=== PATIENT | female | born 1990 | race Caucasian/White ===

== ENCOUNTER 2020-12-26 02:59 | Emergency (ER) | payer SELFPAY ==
[~2020-12-26] VITALS: Ht 165.1 cm; Wt 86.2 kg
[2020-12-26 04:12] VITALS: BP 123/71
[2020-12-26] MEDS ORDERED: ONDANSETRON 4 MG TAB.RAPDIS SL ONE (05:00)
[2020-12-26] MEDS ORDERED: PHENAZOPYRIDINE HCL 200 MG TABLET PO ONE (05:00)
[2020-12-26] MEDS ORDERED: HYDROCODONE/APAP 10/325MG TABLET PO ONE (05:00)
[2020-12-26 05:01] LABS: BILIRUBIN,URINE MODERATE (NEGATIVE); COLOR,URINE ORANGE (YELLOW); LEUKOCYTE ESTERASE ,URINE MODERATE (NEGATIVE); NITRITE, URINE POSITIVE (NEGATIVE); PROTEIN,URINE >=300 mg/dl (NEGATIVE); UGLUCOSE 250 MG/DL mg/dL (NEGATIVE); UROBILINOGEN,URINE >=8.0 EU/dL (0.2)
[2020-12-26] MEDS ORDERED: HYDROCODONE/APAP 10/325MG TABLET ONE (05:07)
[2020-12-26] MEDS ORDERED: ONDANSETRON 4 MG TAB.RAPDIS ONE (05:07)
[2020-12-26 05:10] LABS: RBC,URINE 81-100 /HPF (0-2)
[2020-12-26 05:11] LABS: WBC,URINE 21-50 /HPF (0-3)
[2020-12-26 05:12] LABS: BACTERIA,URINE Moderate /HPF (None Seen); SQUAMOUS EPITHELIAL CELL,UR Few /HPF (None Seen)
[2020-12-26] MEDS ORDERED: PHENAZOPYRIDINE HCL 200 MG TABLET ONE (05:15)
--- NOTE | 2020-12-26 05:38 | NUR ---
Patient discharged to home in stable condition. Written and verbal after care instructions given. Patient verbalizes understanding of instruction.
[2020-12-26] MEDS ORDERED: NITR100C6 PO (05:57)
[2020-12-26] MEDS ORDERED: NITROFURANTOIN/NITROFURAN MONOHYDRATE 100 MG CAPSULE ONE (05:59)
[2020-12-26] MEDS ORDERED: NITROFURANTOIN/NITROFURAN MONOHYDRATE 100 MG CAPSULE PO ONE (06:00)
== END 2020-12-26 06:27 | disposition home or self-care (01) ==
LOC: ER 03:02
DX: N30.90 Cystitis, unspecified without hematuria (principal); J45.909 Unspecified asthma, uncomplicated; Z79.899 Other long term (current) drug therapy
CPT/HCPCS: 81001; 84703; 87077; 87086; 99284; Q0162